=== PATIENT | female | born 1980 | race American Indian/Alaskan Native ===

== ENCOUNTER 2017-11-16 08:52 | Emergency (ER) | payer SELFPAY ==
[2017-11-16] MEDS ORDERED: ZOFRAN IV ONE ×2 (10:07→13:55)
[2017-11-16] MEDS ORDERED: TORADOL IV ONE (10:07)
--- NOTE | 2017-11-16 10:15 | Emergency Department Report ---
ED Female HPI - General Chief complaint: Back Pain/Injury Stated complaint: FLARE UP/STAGE 4 ENDOMETRIOSIS Time Seen by Provider: 11/16/17 09:46 Source: patient Mode of arrival: Ambulatory Limitations: No Limitations - History of Present Illness Initial comments: 37-year-old female past medical history endometriosis, partial hysterectomy, history of ruptured ovarian cysts presents with complaint of pelvic pain for 2 days. Complaining of lower abdominal cramping radiating to back. Patient states she feels severe pain which is intermittent. Denies any vomiting. Denies fevers or chills. States she does not currently have an [facility] and has not had an ultrasound in over a year. States that she is due for her menstrual period now. MD Complaint: pelvic pain - Related Data Previous Rx's Medication Instructions Recorded Last Taken Type Acetaminophen/Codeine [Tylenol 1 tab PO Q6H PRN #12 tab 11/16/17 Unknown Rx /Codeine # 3 tab] Ibuprofen [Motrin] 800 mg PO Q8HR PRN #30 tablet 11/16/17 Unknown Rx Allergies Allergy/AdvReac Type Severity Reaction Status Date / Time No Known Allergies Allergy Unverified 11/16/17 09:10 ED Review of Systems ROS: Stated complaint: FLARE UP/STAGE 4 ENDOMETRIOSIS Other details as noted in HPI ED Past Medical Hx - Past Medical History Previous Medical History?: Yes Additional medical history: Endometriosis, ruptured ovarian cyst - Surgical History Past Surgical History?: Yes Additional Surgical History: Partial hysterectomy (fallopian tubes and left ovary removed), Total bowel reconstruction, uterine fibroids - Social History Smoking Status: Never Smoker Substance Use Type: None - Medications Home Medications: Home Medications Medication Instructions Recorded Confirmed Last Taken Type Acetaminophen/Codeine [Tylenol 1 tab PO Q6H PRN #12 tab 11/16/17 Unknown Rx /Codeine # 3 tab] Ibuprofen [Motrin] 800 mg PO Q8HR PRN #30 tablet 11/16/17 Unknown Rx ED Physical Exam - General Limitations: No Limitations ED Course Vital Signs 11/16/17 11/16/17 11/16/17 09:04 10:26 10:56 Temperature 98 F Pulse Rate 80 Respiratory 16 16 16 Rate Blood Pressure 112/71 O2 Sat by Pulse 100 Oximetry 11/16/17 11/16/17 13:20 13:50 Temperature Pulse Rate Respiratory 16 16 Rate Blood Pressure O2 Sat by Pulse Oximetry ED Medical Decision Making - Lab Data Result diagrams: 11/16/17 10:32 11/16/17 10:29 - Medical Decision Making A/P: Acute on chronic abdominal pain 1-ultrasound shows ovarian cyst right ovary 1.1 cm, good ovarian blood flow bilaterally, CT abdomen and pelvis with by mouth and IV contrast is unremarkable. 2-pt to follow up with outpatient [facility] primary care and outpatient pain management. This is likely secondary to her chronic history of endometriosis 3-Motrin when necessary, short course Tylenol 3 4- vital signs stable before discharge Critical care attestation.: If time is entered above; I have spent that time in minutes in the direct care of this critically ill patient, excluding procedure time. ED Disposition Clinical Impression: Abdominal pain Qualifiers: Abdominal location: lower abdomen, unspecified Qualified Code(s): R10.30 - Lower abdominal pain, unspecified Disposition: TO HOME OR SELFCARE Is pt being admited?: No Does the pt Need Aspirin: No Condition: Stable Instructions: Abdominal Pain (ED), Acute Abdominal Pain (ED) Prescriptions: Acetaminophen/Codeine [Tylenol /Codeine # 3 tab] 1 tab PO Q6H PRN #12 tab PRN Reason: Pain , Severe (7-10) Ibuprofen [Motrin] 800 mg PO Q8HR PRN #30 tablet PRN Reason: Pain , Severe (7-10) Referrals: [facility] [Provider Group] - 3-5 Days [facility] [Provider Group] - 3-5 Days Forms: Work/School Release Form(ED) Time of Disposition: 18:39
[2017-11-16 10:42] LABS: Basophils % (Auto) 0.2 % (0.0-1.8); Eosinophils # (Auto) 0.6 K/mm3 (0.0-0.4); Eosinophils % (Auto) 8.2 % (0.0-4.3); Hematocrit 35.3 % (30.3-42.9); Hemoglobin 11.4 gm/dl (10.1-14.3); Lymphocytes # (Auto) 2.5 K/mm3 (1.2-5.4); Lymphocytes % (Auto) 34.1 % (13.4-35.0); Mean Corpuscular HGB Conc 32 % (30-34); Mean Corpuscular Hemoglobin 28 pg (28-32); Mean Corpuscular Volume 86 fl (79-97); Monocytes # (Auto) 0.6 K/mm3 (0.0-0.8); Monocytes % (Auto) 8.2 % (0.0-7.3); Platelet Count 280 K/mm3 (140-440); Red Blood Count 4.11 M/mm3 (3.65-5.03); Red Cell Distribution Width 14.8 % (13.2-15.2)
[2017-11-16 11:01] LABS: BUN/Creatinine Ratio 15; Blood Urea Nitrogen 9 mg/dL (7-17); Hemolysis Index 10
[2017-11-16 11:07] LABS: Bacteria,Urine 2+ /HPF (Negative); Bilirubin,Urine NEG (Negative); Blood,Urine NEG (Negative); Color,Urine Yellow (Yellow); HCG Qualitative,Urine Negative (Negative); Mucus,Urine FEW /HPF; Protein,Urine <15 mg/dL mg/dL (Negative); Urobilinogen,Urine < 2.0 mg/dL (<2.0)
--- NOTE | 2017-11-16 12:50 | Ultrasound Report ---
ULTRASOUND PELVIS DUPLEX DOPPLER COMPLETE ULTRASOUND TRANSVAGINAL HISTORY: Pelvic pain, endometriosis. COMPARISON: None. TECHNIQUE: Transabdominal and transvaginal ultrasound with doppler interrogation. FINDINGS: Uterus: Anteverted 7.8 x 4.2 x 5.1 cm. The uterine parenchyma is heterogeneous and contains multiple small fibroids. 2 fibroids in the right lateral wall measure 1.9 cm and 1.4 cm. A left lateral wall fibroid measures 1.4 cm. A fundal fibroid measures 1.5 cm. Some of these fibroids contain small internal calcifications. The cervix is unremarkable. Endometrium: 6 mm. Right ovary: 2.7 x 2.2 x 2.3 cm. A 1.1 cm simple cyst is identified. Left ovary: History of left oophorectomy is given. No pelvic fluid or mass is identified. Spectral Doppler waveforms demonstrate arterial flow to the right ovary. IMPRESSION: Uterine fibroid disease. 1.1 cm right ovarian cyst. Left oophorectomy.
[2017-11-16] MEDS ORDERED: MORPHINE IV ONE (13:04)
[2017-11-16] MEDS ORDERED: NACL 0.9% 1000 ML 1,000 ML IV ONE (13:05)
[2017-11-16] MEDS ORDERED: ZOFRAN ONE (13:53)
--- NOTE | 2017-11-16 18:38 | Cat Scan Report ---
FINAL REPORT EXAM: CT ABDOMEN PELVIS W CON HISTORY: RLQ pain TECHNIQUE: CT abdomen and pelvis with intravenous contrast PRIORS: None. FINDINGS: No acute abnormality identified in the lung bases. No focal abnormality identified within the liver parenchyma. The spleen demonstrates normal size and attenuation. No pancreatic abnormalities seen. The kidneys demonstrate symmetric contrast enhancement. No evidence of hydronephrosis. The adrenal glands are unremarkable Abdominal aorta is normal in caliber. No pathologically enlarged lymph nodes are identified. No signs of free fluid or free air No evidence of small bowel dilatation. Colon is nondistended. No pericolonic inflammatory change. Urinary bladder is unremarkable. IMPRESSION: Negative. No acute abnormalities seen
[2017-11-16] MEDS ORDERED: NORCO 5/325 ONE (18:47)
[2017-11-16 19:31] VITALS: BP 98/72
== END 2017-11-16 19:00 | disposition home or self-care (01) ==
LOC: ED 08:52
DX: R10.30 Lower abdominal pain, unspecified (principal); D25.9 Leiomyoma of uterus, unspecified; N80.9 Endometriosis, unspecified; Z90.711 Acquired absence of uterus with remaining cervical stump
CPT/HCPCS: 36415; 74177; 76830; 80048; 81001; 81025; 82140; 85025; 93975; 96374; 96375; 96376; 99284; J1885; J2270; J2405; J7030; Q9967

== ENCOUNTER 2018-06-24 08:25 | Emergency (ER) | payer OTHER ==
[2018-06-24] MEDS ORDERED: MORPHINE IV ONE (09:53)
[2018-06-24] MEDS ORDERED: ZOFRAN IV ONE (09:53)
[2018-06-24] MEDS ORDERED: TORADOL IV ONE (10:37)
[2018-06-24] MEDS ORDERED: NACL 0.9% 500 ML 500 ML IV ONE (10:37)
[2018-06-24] MEDS ORDERED: DILAUDID IV ONE (10:37)
--- NOTE | 2018-06-24 10:39 | Emergency Department Report ---
ED Chest Pain HPI - General Chief Complaint: Chest Pain Stated Complaint: CHEST PAIN Time Seen by Provider: 06/24/18 10:29 Source: patient, RN notes reviewed, old records reviewed Mode of arrival: Stretcher Limitations: No Limitations - History of Present Illness Initial Comments: This is a 37-year-old female. The patient is not known to this provider previously. Patient had body liposuction performed yesterday, and a gluteal augmentation procedure performed yesterday, by Dr. Gibbs. She reports that she is not , and endorses a history of partial hysterectomy, and endometriosis. Her cosmetic surgeon, Dr. Gibbs, reportedly provided medical clearance for surgery. This is as per the patient's verbal report. The patient presents today with a complaint of chest pain. The chest pain as central, and does not radiate to the back, arms or neck. There is no vomiting or diaphoresis. Patient reports that the pain intermittently takes her breath away. Prior to the surgery, the patient reports no chest pain. The patient denies vomiting, diaphoresis, hematemesis, bright red blood per rectum, oral contraceptive use, recent aspirin use, and she denies family history of DVT, pulmonary embolus, coronary artery disease. Her chest pain in the emergency room is on the central region, and increased with palpation and decreased with rest. She has appropriate postoperative pain in her gluteal region, and flank, torso where she had liposuction performed, but otherwise denies new or different pain. MD Complaint: chest pain -: hour(s) (reports that pain started at 4:30 in the morning. Reports that it is intermittent.) Onset: during rest Pain Location: substernal, left chest, right chest Pain Radiation: none Severity: moderate Severity scale (0 -10): 10 Quality: tightness, aching, heaviness Consistency: intermittent Improves With: rest Worsens With: palpation Context: recent surgery re: dyspnea Aspirin use within the Past 7 Days: (0) No - Related Data On Oral Contraceptives: No Previous Rx's Medication Instructions Recorded Last Taken Type Acetaminophen/Codeine [Tylenol 1 tab PO Q6H PRN #12 tab 11/16/17 Unknown Rx /Codeine # 3 tab] Ibuprofen [Motrin] 800 mg PO Q8HR PRN #30 tablet 11/16/17 Unknown Rx Acetaminophen [Tylenol Arthritis] 650 mg PO Q6HR PRN #30 tablet.er 06/24/18 Unknown Rx Ibuprofen [Motrin] 600 mg PO Q8H PRN #30 tablet 06/24/18 Unknown Rx Allergies Allergy/AdvReac Type Severity Reaction Status Date / Time No Known Allergies Allergy Unverified 11/16/17 09:10 Heart Score - HEART Score History: Slightly suspicious EKG: Normal Age: < 45 Risk factors: No known risk factors Troponin: < normal limit HEART Score: 0 - Critical Actions Critical Actions: 0-3 pts:0.9-1.7%risk of adverse cardiac event.Candidate for discharge ED Review of Systems ROS: Stated complaint: CHEST PAIN Other details as noted in HPI Constitutional: denies: fever, malaise Eyes: denies: vision change ENT: denies: epistaxis Respiratory: shortness of breath Cardiovascular: chest pain Gastrointestinal: denies: vomiting Genitourinary: denies: dysuria Musculoskeletal: myalgia Skin: denies: rash Neurological: denies: weakness Psychiatric: anxiety ED Past Medical Hx - Past Medical History Previous Medical History?: Yes Additional medical history: Endometriosis, ruptured ovarian cyst - Surgical History Past Surgical History?: Yes Additional Surgical History: Partial hysterectomy (fallopian tubes and left ovary removed), Total bowel reconstruction, uterine fibroids - Social History Smoking Status: Never Smoker Substance Use Type: None - Medications Home Medications: Home Medications Medication Instructions Recorded Confirmed Last Taken Type Acetaminophen/Codeine [Tylenol 1 tab PO Q6H PRN #12 tab 11/16/17 Unknown Rx /Codeine # 3 tab] Ibuprofen [Motrin] 800 mg PO Q8HR PRN #30 tablet 11/16/17 Unknown Rx Acetaminophen [Tylenol Arthritis] 650 mg PO Q6HR PRN #30 tablet.er 06/24/18 Unknown Rx Ibuprofen [Motrin] 600 mg PO Q8H PRN #30 tablet 06/24/18 Unknown Rx ED Physical Exam - General Limitations: No Limitations General appearance: alert, in no apparent distress - Head Head exam: Present: atraumatic, normocephalic - Eye Eye exam: Present: normal appearance, EOMI. Absent: nystagmus - ENT ENT exam: Present: normal exam, normal orophraynx, mucous membranes moist, normal external ear exam - Neck Neck exam: Present: normal inspection, full ROM. Absent: tenderness, meningismus - Respiratory Respiratory exam: Present: normal lung sounds bilaterally, chest wall tenderness, other (chaperoned by nurse Sadie Rios). Absent: respiratory distress, wheezes, rales, rhonchi, stridor - Cardiovascular Cardiovascular Exam: Present: regular rate, normal rhythm, normal heart sounds. Absent: bradycardia, tachycardia, irregular rhythm, systolic murmur, diastolic murmur, rubs, gallop - GI/Abdominal GI/Abdominal exam: Present: soft. Absent: distended, tenderness, guarding, rebound, rigid, pulsatile mass - Extremities Exam Extremities exam: Present: full ROM, tenderness (appropriate postoperative gluteal tenderness. No obvious redness, pus, streaking. Chaperoned by nurse Sadie Rios), other (2+ pulses noted in the bilateral upper, lower extremities. Compartments soft. No long bony tenderness. The pelvis is stable.). Absent: calf tenderness - Back Exam Back exam: Present: normal inspection, full ROM. Absent: tenderness, CVA tenderness (R), paraspinal tenderness, vertebral tenderness - Neurological Exam Neurological exam: Present: alert, oriented X3, other (Extraocular movements intact. Tongue midline. No facial droop. Facial sensation intact to light touch in the V1, V2, V3 distribution bilaterally. 5 and 5 strength in 4 extremities.. Sensation is intact to light touch in 4 extremities.). Absent: motor sensory deficit - Psychiatric Psychiatric exam: Present: normal affect, normal mood - Skin Skin exam: Present: warm, dry, intact, normal color. Absent: rash ED Course Vital Signs 06/24/18 06/24/18 06/24/18 09:40 10:20 10:46 Temperature Pulse Rate 93 H 92 H Respiratory 20 18 Rate Blood Pressure 117/59 Blood Pressure 103/69 [Left] O2 Sat by Pulse 98 98 98 Oximetry 06/24/18 06/24/18 11:52 13:09 Temperature 98.9 F Pulse Rate 93 H 93 H Respiratory 16 16 Rate Blood Pressure Blood Pressure 93/59 102/40 [Left] O2 Sat by Pulse 97 98 Oximetry - Reevaluation(s) Reevaluation #1: 06/24/18 11:46 Differential diagnosis, including but not limited to: GERD, gastritis, costoch ondritis, pulmonary embolus, acute coronary syndrome, pneumonia Assessment and plan: 37-year-old female with reproducible chest wall tenderness, recent elective outpatient cosmetic surgery, tachycardic, but not hypoxic, no evidence of lower extremity DVT, with elevated d-dimer. As a courtesy, we have attempted to call the patient's plastic surgeon of record, Dr. Ludwin Gibbs, ([place]: [phone] [place]: [phone] ), 2 messages have been left, thus far, the patient's physician has not called me back. The patient is not able to get a lower extremity DVT study secondary to underlying compressive dressing from her recent elective surgery. We attempted to obtain DVT study to potentially spelled the patient's radiation exposure. However, we are not able to obtain this study for the aforementioned reasons. Her d-dimer is elevated, and we will therefore obtain a CT scan of the chest to exclude pulmonary embolus. From a coronary artery disease standpoint, EKG unremarkable, troponin negative 1, low risk by the heart score, low risk by the GODFREY score, repeat EKG, tr oponin pending, patient unlikely to experience major adverse cardiac event. Reevaluation #2: 06/24/18 13:56 Troponin negative 2. Repeat EKG unchanged from prior. Scan of the chest performed and interpretation is pending. Please note that the patient is experiencing a prolonged length of stay in the emergency department secondary to multiple technical issues with the remote radiology group. Hospital and emergency medicine Department administrators are aware. Reevaluation #3: 06/24/18 14:30 [place] office technologist aware Filled ID Written Drug QTY Days Prescriber Rx # Pharmacy * Refills Daily Dose Pymt Type NUCLEAR CONTROL ROOM OPERATOR 06/20/2018 2 06/20/2018 HYDROMORPHONE 2 MG TABLET 10.0 2 DW RAMONA [id number] [facility] ([id number]) 0 40.0 [facility] Private [place] 06/20/2018 2 06/20/2018 LORAZEPAM 0.5 MG TABLET 10.0 2 DW RAM[place] [id number] [facility] ([id number]) 0 Comm [place] 05/02/2018 1 05/02/2018 HYDROCODONE-ACETAMIN 5-325 MG 18.0 3 AN SHE [id number] [facility] ([id number]) 0 30.[address] [place] [address] scan of the chest is negative for acute disease. Patient resting comfortably, and in no acute distress. She is reviewed on the [place] prescription monitoring database. She was recently prescribed hydromorphone by her prescribing surgeon. She is requesting oxycodone or [place]. Explained to the patient that NSAIDs are preferable, and explained that given recent narcotic distribution, this provided did not feel comfortable or appropriate dispensing narcotics. She will be discharged with instructions to follow-up with her outpatient plastic surgeon as scheduled, and she is medically suitable to follow-up with an outpatient primary care doctor or rental coordinator for her chest wall pain. GODFREY score - Godfrey Score Age > 65: (0) No Aspirin use within the Past 7 Days: (0) No 3 or more CAD Risk Factors: (0) No 2 or more Angina events in past 24 hrs: (0) No Known CAD with more than 50% Stenosis: (0) No Elevated Cardiac Markers: (0) No ST Deviation Greater than 0.5mm: (0) No GODFREY Score: 0 ED Medical Decision Making - Lab Data Result diagrams: 06/24/18 10:50 06/24/18 10:50 Vital Signs 06/24/18 06/24/18 06/24/18 09:40 10:20 10:46 Pulse Rate 93 H 92 H Respiratory 20 18 Rate Blood Pressure 117/59 Blood Pressure 103/69 [Left] O2 Sat by Pulse 98 98 98 Oximetry Lab Results 06/24/18 06/24/18 06/24/18 Range/Units 10:50 10:50 10:50 WBC 8.2 (4.5-11.0) K/mm3 RBC 3.92 (3.65-5.03) M/mm3 Hgb 11.3 (10.1-14.3) gm/dl Hct 34.0 (30.3-42.9) % MCV 87 (79-97) fl MCH 29 (28-32) pg MCHC 33 (30-34) % RDW 14.9 (13.2-15.2) % Plt Count 287 (140-440) K/mm3 PT 14.2 (12.2-14.9) Sec. INR 1.04 (0.87-1.13) D-Dimer 288.48 H (0-234) ng/mlDDU Sodium 136 L (137-145) mmol/L Potassium 3.9 (3.6-5.0) mmol/L Chloride 101.4 (98-107) mmol/L Carbon Dioxide 26 (22-30) mmol/L Anion Gap 13 mmol/L BUN 6 L (7-17) mg/dL Creatinine 0.6 L (0.7-1.2) mg/dL Estimated GFR > 60 ml/min BUN/Creatinine Ratio 10 % Glucose 87 (65-100) mg/dL Calcium 8.7 (8.4-10.2) mg/dL Total Creatine Kinase 193 H (30-135) units/L Troponin T < 0.010 (0.00-0.029) ng/mL - EKG Data -: EKG Interpreted by Me EKG shows normal: sinus rhythm, axis, intervals, QRS complexes, ST-T waves Rate: tachycardia - EKG Data When compared to previous EKG there are: previous EKG unavailable - Radiology Data Radiology results: pending, report reviewed, image reviewed Critical care attestation.: If time is entered above; I have spent that time in minutes in the direct care of this critically ill patient, excluding procedure time. ED Disposition Clinical Impression: Chest wall pain Disposition: TO HOME OR SELFCARE Is pt being admited?: No Does the pt Need Aspirin: No Condition: Stable Instructions: Chest Pain (ED), Costochondritis (ED) Additional Instructions: Rest, and avoid heavy lifting. Avoid strenuous physical activities. Take the pain medications as needed/directed. Follow-up with your plastic surgeon of record as scheduled. Follow-up with the primary care doctor or rental coordinator within the next 3-5 days for chest wall pain. This provider typically does not dispense narcotics for c hest wall pain, as they are not medically necessary, indicated, and posed a risk of high abuse, dependency potential, as well as addiction. Medications that were prescribed are appropriate for chest wall pain in a young patient. Please return to the emergency room right away with new, worsening or different symptoms. Referrals: MARTINE ZEPEDA MD [Staff Physician] - 3-5 Days LORNA SWEENEY MD [Staff Physician] - 3-5 Days
[2018-06-24 11:15] LABS: Hemoglobin 11.3 gm/dl (10.1-14.3); Mean Corpuscular HGB Conc 33 % (30-34); Mean Corpuscular Volume 87 fl (79-97); Platelet Count 287 K/mm3 (140-440); Red Blood Count 3.92 M/mm3 (3.65-5.03); Red Cell Distribution Width 14.9 % (13.2-15.2)
[2018-06-24 11:33] LABS: BUN/Creatinine Ratio 10; Blood Urea Nitrogen 6 mg/dL (7-17); Calcium 8.7 mg/dL (8.4-10.2); Hemolysis Index 8
[2018-06-24 11:34] LABS: INR 1.04 (0.87-1.13)
[2018-06-24 14:53] VITALS: BP 93/54
--- NOTE | 2018-06-24 18:14 | Cat Scan Report ---
PROCEDURE: CT ANGIO CHEST TECHNIQUE: Computerized tomographic angiography of the chest was performed after the IV injection of iodinated nonionic contrast including image processing. The image data was postprocessed using 2-di mensional multiplanar reformatted (MPR) and 3-dimensional (MIP and/or volume rendered) techniques. Au tomated exposure control, adjustment of mA and/or kV according to patient size, or iterative reconstr uction dose optimization techniques were utilized. CT DOSE LENGTH PRODUCT: 445.71 mGycm HISTORY: cp recent surgery FINDINGS: Contrast-enhanced CT angiography of the chest was performed following the intravenous admin istration of iodinated contrast. Sagittal and coronal MIP three-dimensional reformatted images were g enerated. These images demonstrate no CT evidence of pulmonary thromboembolic disease. There is no aortic disse ction. There is right upper lobe and right lower lobe linear consolidation which is likely atelectasis. Ther e is no pleural or pericardial effusion. There is subcutaneous emphysema in the anterior abdominal wall which is likely postprocedural. IMPRESSION: No CT evidence of pulmonary thromboembolic disease This document is electronically signed by Juan Ford MD., June 24 2018 02:16:57 PM ET
== END 2018-06-24 16:43 | disposition home or self-care (01) ==
LOC: ED 08:25
DX: R07.89 Other chest pain (principal); Z90.711 Acquired absence of uterus with remaining cervical stump
CPT/HCPCS: 36415; 71275; 80048; 82550; 84484; 84702; 85027; 85379; 85610; 93005; 93010; 96374; 96375; 99285; J1170; J1885; J2270; J2405; J7040; Q9967

== ENCOUNTER 2019-03-27 23:45 | Emergency (ER) | payer SELFPAY ==
[2019-03-28] MEDS ORDERED: FAMOTIDINE 20 MG/2 ML INJ IV ONE (01:36)
[2019-03-28] MEDS ORDERED: SODIUM CHLORIDE 0.9% 1000 ML 1,000 ML IV ONE (01:36)
[2019-03-28] MEDS ORDERED: ONDANSETRON 4 MG/2 ML INJ IV ONE (01:36)
[2019-03-28] MEDS ORDERED: MORPHINE 4 MG/1 ML INJ IV ONE (01:36)
[2019-03-28 02:15] LABS: Basophils % (Auto) 0.4 % (0.0-1.8); Eosinophils # (Auto) 0.8 K/mm3 (0.0-0.4); Eosinophils % (Auto) 8.8 % (0.0-4.3); Hematocrit 38.7 % (30.3-42.9); Hemoglobin 12.7 gm/dl (10.1-14.3); Lymphocytes # (Auto) 2.6 K/mm3 (1.2-5.4); Lymphocytes % (Auto) 28.9 % (13.4-35.0); Mean Corpuscular HGB Conc 33 % (30-34); Mean Corpuscular Volume 90 fl (79-97); Monocytes # (Auto) 0.7 K/mm3 (0.0-0.8); Monocytes % (Auto) 7.7 % (0.0-7.3); Platelet Count 272 K/mm3 (140-440); Red Blood Count 4.31 M/mm3 (3.65-5.03); Red Cell Distribution Width 14.9 % (13.2-15.2)
[2019-03-28 02:33] LABS: Alanine Aminotransferase 9 units/L (7-56); BUN/Creatinine Ratio 11; Blood Urea Nitrogen 10 mg/dL (7-17); Hemolysis Index 1
[2019-03-28] MEDS ORDERED: KETOROLAC 30 MG/1 ML INJ IV ONE (04:21)
--- NOTE | 2019-03-28 04:34 | Cat Scan Report ---
CT ABDOMEN AND PELVIS WITH IV CONTRAST INDICATION: abdominal pain. COMPARISON: None available. TECHNIQUE: Axial CT images were obtained through the abdomen and pelvis after 100 mL IV contrast. All CT scans a t this location are performed using CT dose reduction for ALARA by means of automated exposure contro l. FINDINGS -- ABDOMEN: Lung Bases: No acute abnormality. Liver: Normal. Gallbladder: Normal. Bile Ducts: Normal. Pancreas: Normal. Spleen: Normal. Adrenals: Normal. Right Kidney and Proximal Ureter: Normal. Left Kidney and Proximal Ureter: Normal. Stomach and Bowel: Normal. Lymph Nodes: No significant adenopathy. Aorta: No significant abnormality. IVC: Normal. Additional Findings: None. FINDINGS -- PELVIS: Urinary Bladder and Distal Ureters: Normal. Reproductive Organs: Fibroid uterus. Multiple cystic lesions arising from the right ovary the largest of which measures 2 cm in diameter.. Appendix: Not well identified.. Bowel: No acute abnormality. Free Fluid: None. Lymph Nodes: No significant adenopathy. Additional Findings: None. Skeletal System: No acute abnormality. IMPRESSION: Fibroid uterus. Multiple small cystlike structures arising from the right ovary the largest of which measures just under 2 cm in diameter. Signer Name: Bunny Rodgers MD Signed: 03/28/2019 4:29 AM Workstation Name: [id number]
--- NOTE | 2019-03-28 06:04 | Emergency Department Report ---
ED Abdominal Pain HPI - General Chief Complaint: Abdominal Pain Stated Complaint: CRAMPING PAIN Source: patient, EMS Mode of arrival: Stretcher Limitations: Physical Limitation - History of Present Illness Initial Comments: Patient is a 38-year-old -[place] female with a history of chronic endometriosis who presents to the ED with diffuse abdominal pain worsened epigastric and suprapubic area and that radiates to the lower back with intermittent nausea and vomiting for the last 12 hours. Patient states that initially she thought that the pain was due to endometriosis flare. Patient also states that she has also been having persistent vaginal bleeding which has Giuseppe to use one pad since the onset. Patient states the pain got worse despite taking ibuprofen intermittently. Patient denies fever, chills, diarrhea, dysuria, urinary frequency and urgency, change in vision, syncope, chest pain, shortness of breath or cough and hematochezia and hematemesis. MD Complaint: abdominal pain, other (Nausea and vomiting; Vaginal bleeding) -: Sudden, hour(s) (12) Location: diffuse, periumbilical, epigastric, suprapubic Radiation: epigastric, suprapubic, back Migration to: no migration Severity: severe Severity scale (0 -10): 8 Quality: cramping, aching, sharp Consistency: constant Improves With: nothing Worsens With: nothing Associated Symptoms: denies other symptoms, nausea, vomiting, anorexia. denies: diarrhea, fever, chills, constipation, dysuria, hematemesis, hematochezia, melena, hematuria Treatments Prior to Arrival: NSAIDs - Related Data Previous Rx's Medication Instructions Recorded Last Taken Type Acetaminophen/Codeine [Tylenol 1 tab PO Q6H PRN #12 tab 11/16/17 Unknown Rx /Codeine # 3 tab] Ibuprofen [Motrin] 800 mg PO Q8HR PRN #30 tablet 11/16/17 Unknown Rx Acetaminophen [Tylenol Arthritis] 650 mg PO Q6HR PRN #30 tablet.er 06/24/18 Unknown Rx Ibuprofen [Motrin] 600 mg PO Q8H PRN #30 tablet 06/24/18 Unknown Rx Famotidine [Pepcid] 20 mg PO Q12H #60 tablet 03/28/19 Unknown Rx Ketorolac [Toradol] 10 mg PO Q8H PRN #20 tablet 03/28/19 Unknown Rx Ondansetron [Zofran Odt] 4 mg PO Q6HR PRN #20 tab.rapdis 03/28/19 Unknown Rx traMADoL [Ultram] 50 mg PO Q6HR PRN #12 tablet 03/28/19 Unknown Rx Allergies Allergy/AdvReac Type Severity Reaction Status Date / Time No Known Allergies Allergy Unverified 11/16/17 09:10 ED Review of Systems ROS: Stated complaint: CRAMPING PAIN Other details as noted in HPI Constitutional: denies: chills, fever Eyes: denies: eye pain, eye discharge, vision change ENT: denies: ear pain, throat pain Respiratory: denies: cough, shortness of breath, wheezing Cardiovascular: denies: chest pain, palpitations Endocrine: no symptoms reported Gastrointestinal: abdominal pain, nausea, vomiting. denies: diarrhea Genitourinary: abnormal menses (vaginal bleeding). denies: urgency, dysuria, discharge Musculoskeletal: denies: back pain, joint swelling, arthralgia Skin: denies: rash, lesions Neurological: denies: headache, weakness, paresthesias Psychiatric: denies: anxiety, depression Hematological/Lymphatic: denies: easy bleeding, easy bruising ED Past Medical Hx - Past Medical History Previous Medical History?: Yes Additional medical history: Endometriosis, ruptured ovarian cyst - Surgical History Past Surgical History?: Yes Additional Surgical History: Partial hysterectomy (fallopian tubes and left ovary removed), Total bowel reconstruction, uterine fibroids - Social History Smoking Status: Former Smoker Substance Use Type: Alcohol - Medications Home Medications: Home Medications Medication Instructions Recorded Confirmed Last Taken Type Acetaminophen/Codeine [Tylenol 1 tab PO Q6H PRN #12 tab 11/16/17 Unknown Rx /Codeine # 3 tab] Ibuprofen [Motrin] 800 mg PO Q8HR PRN #30 tablet 11/16/17 Unknown Rx Acetaminophen [Tylenol Arthritis] 650 mg PO Q6HR PRN #30 tablet.er 06/24/18 Unknown Rx Ibuprofen [Motrin] 600 mg PO Q8H PRN #30 tablet 06/24/18 Unknown Rx Famotidine [Pepcid] 20 mg PO Q12H #60 tablet 03/28/19 Unknown Rx Ketorolac [Toradol] 10 mg PO Q8H PRN #20 tablet 03/28/19 Unknown Rx Ondansetron [Zofran Odt] 4 mg PO Q6HR PRN #20 tab.rapdis 03/28/19 Unknown Rx traMADoL [Ultram] 50 mg PO Q6HR PRN #12 tablet 03/28/19 Unknown Rx ED Physical Exam - General Limitations: Physical Limitation General appearance: alert, in no apparent distress - Head Head exam: Present: atraumatic, normocephalic, normal inspection - Eye Eye exam: Present: normal appearance, PERRL, EOMI Pupils: Present: normal accommodation - ENT ENT exam: Present: normal exam, normal orophraynx, mucous membranes moist, TM's normal bilaterally, normal external ear exam - Neck Neck exam: Present: normal inspection, full ROM. Absent: tenderness - Respiratory Respiratory exam: Present: normal lung sounds bilaterally. Absent: respiratory distress, wheezes, rales, chest wall tenderness, accessory muscle use, decreased breath sounds - Cardiovascular Cardiovascular Exam: Present: regular rate, normal rhythm, normal heart sounds. Absent: systolic murmur, diastolic murmur, rubs, gallop - GI/Abdominal GI/Abdominal exam: Present: soft, tenderness (diffuse abdominal tenderness worse in the suprapubic and epigastric area with guarding), guarding, normal bowel sounds. Absent: rebound, hyperactive bowel sounds, hypoactive bowel sounds - Bi-manual exam: Present: other (deffered pelvic exam) - Extremities Exam Extremities exam: Present: normal inspection, full ROM, normal capillary refill - Back Exam Back exam: Present: normal inspection, full ROM. Absent: muscle spasm - Neurological Exam Neurological exam: Present: alert, oriented X3, CN II-XII intact, normal gait, reflexes normal - Psychiatric Psychiatric exam: Present: normal affect, normal mood - Skin Skin exam: Present: warm, dry, intact, normal color. Absent: rash ED Course Vital Signs 03/28/19 03/28/19 03/28/19 00:13 01:57 02:27 Temperature 98.6 F Pulse Rate 78 Respiratory 16 18 18 Rate Blood Pressure 109/73 Blood Pressure 109/73 [Left] O2 Sat by Pulse 99 Oximetry 03/28/19 04:28 Temperature Pulse Rate Respiratory 18 Rate Blood Pressure Blood Pressure [Left] O2 Sat by Pulse Oximetry ED Medical Decision Making - Lab Data Result diagrams: 03/28/19 01:45 03/28/19 01:45 - Radiology Data Radiology results: report reviewed, image reviewed Findings [facility] [address] [place] [address] Cat Scan Report Signed Patient: EB GALDAMEZ MR#: [id number] : 1980 Acct:[id number] Age/Sex: 38 / F ADM Date: 03/27/19 Loc: ED Attending Dr: Ordering Physician: CLARISA CACERES Date of Service: 03/28/19 Procedure(s): CT abdomen pelvis w con Accession Number(s): [id number] cc: CLARISA CACERES CT ABDOMEN AND PELVIS WITH IV CONTRAST INDICATION: abdominal pain. COMPARISON: None available. TECHNIQUE: Axial CT images were obtained through the abdomen and pelvis after 100 mL IV contrast. All CT scans at this location are performed using CT dose reduction for ALARA by means of automated exposure control. FINDINGS -- ABDOMEN: Lung Bases: No acute abnormality. Liver: Normal. Gallbladder: Normal. Bile Ducts: Normal. Pancreas: Normal. Spleen: Normal. Adrenals: Normal. Right Kidney and Proximal Ureter: Normal. Left Kidney and Proximal Ureter: Normal. Stomach and Bowel: Normal. Lymph Nodes: No significant adenopathy. Aorta: No significant abnormality. IVC: Normal. Additional Findings: None. FINDINGS -- PELVIS: Urinary Bladder and Distal Ureters: Normal. Reproductive Organs: Fibroid uterus. Multiple cystic lesions arising from the right ovary the largest of which measures 2 cm in diameter.. Appendix: Not well identified.. Bowel: No acute abnormality. Free Fluid: None. Lymph Nodes: No significant adenopathy. Additional Findings: None. Skeletal System: No acute abnormality. IMPRESSION: Fibroid uterus. Multiple small cystlike structures arising from the right ovary the largest of which measures just under 2 cm in diameter. Signer Name: Bunny Rodgers MD Signed: 03/28/2019 4:29 AM Workstation Name: [id number] Transcribed By: BC Dictated By: Bunny Rodgers MD Electronically Authenticated By: Bunny Rodgers MD Signed Date/Time: 03/28/19428 DD/ 7 - Medical Decision Making This is a 38-year-old -[place] female with a history of chronic endometriosis who presented to the ED with diffuse abdominal pain with nausea and vomiting and vaginal bleeding for 12 hours. In the ED, patient is alert and oriented 3 and is not in distress but appears to be significant pain. Lab test results were reviewed and are nonactionable. Patient was treated for pain in the ED and also treated for nausea and vomiting. Patient also received antacids and normal saline 1 L IV bolus. Abdomen pelvis CT scan with contrast shows multiple small cystlike structures arising from the right ovary the la rgest of which measures just under 2 cm in diameter. The rest of the abdomen pelvis CT scan is unremarkable. On reevaluation, patient's pain is well controlled with medication and was discharged home on pain medications and antiemetics and advised to follow-up with [employer] physician in 3-5 days for reevaluation or return to the ED immediately if symptoms get worse. - Differential Diagnosis Endometriosis; Colitis; UTI; Ovarian cyst; Fibroids; GERD; Gastritis Critical care attestation.: If time is entered above; I have spent that time in minutes in the direct care of this critically ill patient, excluding procedure time. ED Disposition Clinical Impression: Nausea and vomiting in adult Abdominal pain Qualifiers: Abdominal location: generalized Qualified Code(s): R10.84 - Generalized abdominal pain Uterine fibroid Qualifiers: Uterine leiomyoma location: unspecified location Qualified Code(s): D25.9 - Leiomyoma of uterus, unspecified Ovarian cyst Qualifiers: Laterality: right Qualified Code(s): N83.201 - Unspecified ovarian cyst, right side Disposition: DC-01 TO HOME OR SELFCARE Is pt being admited?: No Does the pt Need Aspirin: No Condition: Stable Instructions: Ovarian Cyst (ED), Uterine Fibroids (ED), Acute Nausea and Vomiting (ED), Abdominal Pain (ED) Additional Instructions: Take medication with food, drink plenty of fluids and follow-up with your primary care physician or your [employer] physician in 5-7 days for reevaluation. Return to the ED immediately if symptoms get worse. Prescriptions: Famotidine [Pepcid] 20 mg PO Q12H #60 tablet Ketorolac [Toradol] 10 mg PO Q8H PRN #20 tablet PRN Reason: Pain traMADoL [Ultram] 50 mg PO Q6HR PRN #12 tablet PRN Reason: Pain Ondansetron [Zofran Odt] 4 mg PO Q6HR PRN #20 tab.rapdis PRN Reason: Nausea And Vomiting Referrals: PRIMARY CARE, [Primary Care Provider] - 3-5 Days Forms: Work/School Release Form(ED) Time of Disposition: 06:09 Print Language: MAORI
[2019-03-28 06:36] LABS: Bacteria,Urine 1+ /HPF (Negative); Bilirubin,Urine NEG (Negative); Blood,Urine MOD (Negative); Color,Urine Yellow (Yellow); Mucus,Urine FEW /HPF; Urobilinogen,Urine < 2.0 mg/dL (<2.0)
[2019-03-28 06:59] VITALS: BP 100/60
== END 2019-03-28 07:00 | disposition home or self-care (01) ==
LOC: ED 23:45
DX: N83.201 Unspecified ovarian cyst, right side (principal); D25.9 Leiomyoma of uterus, unspecified; R11.2 Nausea with vomiting, unspecified; Z90.710 Acquired absence of both cervix and uterus; Z87.891 Personal history of nicotine dependence; Z79.899 Other long term (current) drug therapy
CPT/HCPCS: 36415; 74177; 80053; 81001; 83690; 84703; 85025; 96361; 96374; 96375; 99284; J1885; J2270; J2405; J7030; Q9967